=== PATIENT | female | born 1995 | race Caucasian/White ===

== ENCOUNTER → 2020-07-17 12:31 | Observation (INO) ==
[2020-07-17 12:12] LABS: Bilirubin,Urine Negative (Negative); Blood,Urine Negative (Negative); Clarity,Urine Clear (Clear); Color,Urine Light-Yellow (Yellow); Glucose,Urine (UA) Normal (Normal); Ketones,Urine Negative (Negative); Leukocyte Esterase,Urine Negative (Negative); Nitrite,Urine Negative (Negative); PH,Urine 7.5 pH Units (5.0-8.0); Protein,Urine Negative (Neg-Trace); Urobilinogen,Urine Normal (Normal)
== END | disposition home or self-care (01) ==
LOC: 1NENULAB
PROVIDERS: ADMIT Advanced Practice Midwife; ATTEND Advanced Practice Midwife

== ENCOUNTER → 2020-09-11 01:11 | Observation (INO) | END | disposition home or self-care (01) | LOC: 1NENULAB | PROVIDERS: ADMIT Obstetrics & Gynecology; ATTEND Obstetrics & Gynecology ==

== ENCOUNTER 2020-09-18 04:00 | Inpatient (IN) ==
[2020-09-18] MEDS ORDERED: miSOPROStoL 25 MCG TABLET PO PRN (04:18)
[2020-09-18] MEDS ORDERED: Metoclopramide 10 MG/2 ML VIAL IVP PRN (04:18)
[2020-09-18] MEDS ORDERED: Famotidine 20 MG/2 ML VIAL IVP PRN (04:18)
[2020-09-18] MEDS ORDERED: Ondansetron 4 MG/2 ML VIAL IVP PRN (04:18)
[2020-09-18] MEDS ORDERED: Azithromycin 500 MG in 0.9 % Sodium Chloride 250 ML IVPB PRN (04:18)
[2020-09-18] MEDS ORDERED: Naloxone 0.4 MG/ML INJ IVP PRN (04:18)
[2020-09-18] MEDS ORDERED: *HR* Nalbuphine 10 MG/ML AMPUL IV PRN (04:18)
[2020-09-18] MEDS ORDERED: Lidocaine 1% 20 ML MDV ID PRN (04:18)
[2020-09-18] MEDS ORDERED: Ringers Solution, Lactated 1,000 ML IVC SCH (04:30)
[2020-09-18] MEDS ORDERED: Oxytocin 20 units/ LR 1000 mL 20 UNIT/1,000 ML BAG IVC SCH ×2 (04:30→20:26)
[2020-09-18 05:01] LABS: Amphetamine Screen,Urine Negative ng/mL (Cutoff=1000); Barbiturate Screen,Urine Negative ng/mL (Cutoff=200); Benzodiazepines Screen,Urine Negative ng/mL (Cutoff=200); Cannabinoid Screen,Urine Negative ng/mL (Cutoff = 50); Cocaine Screen,Urine Negative ng/mL (Cutoff= 300); Opiate Screen,Urine Negative ng/mL (Cutoff=300); Phencyclidine Screen,Urine Negative ng/mL (Cutoff=25)
[2020-09-18 05:05] LABS: Basophils % 0.3 %; Eosinophils # 0.1 K/mcL (0.0-0.6); Hematocrit 32.7 % (35.3-44.9); Immature Granulocytes % 0.7 % (0-4); Lymphocytes # 1.8 K/mcL (0.6-4.6); Lymphocytes % 26.6 %; Mean Corpuscular HGB Conc 33.6 g/dL (31.6-35.5); Mean Corpuscular Volume 86.3 fL (83.0-100.0); Mean Platelet Volume 9.7 fL (9.4-12.4); Monocytes # 0.6 K/mcL (0.0-1.3); Monocytes % 9.3 %; Neutrophils # 4.2 K/mcL (1.6-8.9); Platelet Count 225 K/mcL (140-400); Red Blood Count 3.79 M/mcL (3.82-4.97); Red Cell Distribution Width 13.2 % (11.5-14.5); Segmented Neutrophils % 61.1 %; White Blood Count 6.9 K/mcL (4.3-11.1)
[2020-09-18] MEDS ORDERED: EPHEDrine 50 MG/ML VIAL IVP PRN (10:19)
[2020-09-18] MEDS ORDERED: Ropivacaine/PF 0.2% 20 ML VIAL EP ONE (10:19)
[2020-09-18] MEDS ORDERED: Epidural Premix (fent/bupiv) 110 ML EP SCH (10:30)
[2020-09-18] MEDS ORDERED: Lanolin 7 G OINT...G. TP PRN (20:26)
[2020-09-18] MEDS ORDERED: Ibuprofen 600 MG TABLET PO PRN (20:26)
[2020-09-18] MEDS ORDERED: Benzocaine/Menthol 56 GM AEROSOL SPRAY TP PRN (20:26)
[2020-09-18] MEDS ORDERED: Ondansetron 4 MG/2 ML VIAL IVP ONE (20:35)
[2020-09-18] MEDS: Acetaminophen 325 MG TABLET PO PRN (21:25)
[2020-09-19 06:21] VITALS: O2SAT 97
[2020-09-19] MEDS ORDERED: Prenatal Vit/FA 1 EACH TABLET PO SCH (09:00)
[2020-09-19] MEDS: Acetaminophen 325 MG TABLET PO PRN (09:18)
[2020-09-19 10:59] VITALS: BP 125/72; PULSE 80; TEMP 98.7
== END 2020-09-19 16:10 | disposition home or self-care (01) | DRG 807 ==
LOC: 1NENULAB 04:12 → 1NENUOBS 19:56
PROVIDERS: ADMIT Student in an Organized Health Care Education/Training Program; ATTEND Student in an Organized Health Care Education/Training Program